=== PATIENT | female | born 1990 | race African-American/Black ===

== ENCOUNTER 2016-05-03 12:26 | Emergency (ER) | payer BC, MEDICAID ==
[~2016-05-03] VITALS: Ht 175.3 cm; Wt 50.0 kg
[2016-05-03] MEDS ORDERED: KETOROLAC 30MG/ML VIAL IV STA (14:59)
[2016-05-03] MEDS ORDERED: LACTULOSE 20G/30ML UDC PO ONE (15:00)
[2016-05-03] MEDS ORDERED: SODIUM CHLORIDE 0.9% 1,000 ML IV ONE (15:00)
[2016-05-03] MEDS ORDERED: FAMOTIDINE 20MG/2ML VIAL IV ONE (15:00)
[2016-05-03 15:29] LABS: BASOPHILS % 1.1 % (0.0-2.0); EOSINOPHILS % 0.8 % (0.0-5.0); HEMATOCRIT. 36.7 % (36.0-48.0); LYMPHOCYTES % 30.7 % (20.0-50.0); MEAN CORPUSCULAR HEMOGLOBIN 28.2 pg (28.0-32.0); MEAN CORPUSCULAR HGB CONC 32.8 g/dL (31.0-37.0); MEAN CORPUSCULAR VOLUME 85.9 fL (81.0-99.0); MEAN PLATELET VOLUME 8.5 fl (7.4-10.4); MONOCYTES % 7.1 % (2.0-8.0); NEUTROPHILS % 60.3 % (40.0-76.0); PLATELET 409 x1000/uL (130-400); RED BLOOD CELL COUNT 4.27 mill/uL (4.2-5.4); RED CELL DISTRIBUTION WIDTH 14.4 % (11.6-14.6); WHITE BLOOD COUNT 7.7 x1000/uL (4.5-11.0)
[2016-05-03 15:35] LABS: INR 1.1; PROTHROMBIN TIME 11.1 sec
[2016-05-03 15:42] LABS: ALANINE AMINOTRANSFERASE 20 IU/L (13-61); ALBUMIN 3.9 g/dL (3.4-5.0); ANION GAP 11; CARBON DIOXIDE 28 mEq/L (21-32); CHLORIDE 104 mEq/L (98-107); INDEX HEMOLYSI 1 (1-3); INDEX ICTERIC 1 (1-4); INDEX LIPEMIC 1 (1-3); LIPASE 95 IU/L (73-393); UREA NITROGEN BLOOD 9 mg/dL (7-21); eGFR > 60 mL/min (>60)
[2016-05-03 15:48] LABS: GLUCOSE URINE NEGATIVE (NEGATIVE); KETONES URINE NEGATIVE (NEGATIVE); LEUKOCYTE ESTERASE URINE 1+ (NEGATIVE); NITRITE URINE NEGATIVE (NEGATIVE); OCCULT BLOOD URINE NEGATIVE (NEGATIVE); PH URINE 7.5 (4.5-8.0); PROTEIN URINE TRACE (NEGATIVE)
[2016-05-03 15:52] LABS: CLARITY URINE HAZY (CLEAR); COLOR URINE DARK YELLOW (YELLOW)
[2016-05-03 16:03] LABS: BACTERIA URINE 1+; SQUAMOUS EPITHELIAL CELL URINE 1+ /lpf (RARE/1+)
[2016-05-03 16:04] LABS: RBC URINE 0-2 /hpf (0-2)
[2016-05-03 16:05] LABS: AMORPHOUS SEDIMENT URINE 1+ /lpf
[2016-05-03 20:46] VITALS: BP 121/78
== END 2016-05-03 20:47 | disposition home or self-care (01) ==
LOC: ER 15:02
DX: N39.0 Urinary tract infection, site not specified (principal); K59.00 Constipation, unspecified; J45.909 Unspecified asthma, uncomplicated
CPT/HCPCS: 36415; 76700; 76830; 76856; 76857; 80053; 81001; 81025; 83690; 85025; 85610; 87210; 96374; 96375; 99285; J1885; J3490; Z7610; J7030

== ENCOUNTER 2016-06-18 15:24 | Emergency (ER) | payer BC, MEDICAID ==
[~2016-06-18] VITALS: Ht 162.6 cm; Wt 54.0 kg
[2016-06-18 16:30] VITALS: BP 116/81
== END 2016-06-18 21:38 | disposition left against medical advice (07) ==
LOC: ER 20:25
DX: N93.8 Other specified abnormal uterine and vaginal bleeding (principal); R10.30 Lower abdominal pain, unspecified; Z98.890 Other specified postprocedural states
CPT/HCPCS: 99281

== ENCOUNTER 2016-08-25 20:20 | Emergency (ER) | payer BC, MEDICAID ==
[~2016-08-25] VITALS: Ht 160 cm; Wt 55.0 kg
[2016-08-25] MEDS ORDERED: KETOROLAC 60MG/2ML VIAL IM ONE (23:00)
[2016-08-26 00:37] LABS: CLARITY URINE CLEAR (CLEAR); COLOR URINE YELLOW (YELLOW); KETONES URINE TRACE (NEGATIVE); LEUKOCYTE ESTERASE URINE 1+ (NEGATIVE); NITRITE URINE NEGATIVE (NEGATIVE); OCCULT BLOOD URINE NEGATIVE (NEGATIVE); PH URINE 5.5 (4.5-8.0); PROTEIN URINE NEGATIVE (NEGATIVE); SPECIFIC GRAVITY URINE 1.031 (1.005-1.030); UROBILINOGEN URINE 0.2 E.U./dL (0.2-1.0)
[2016-08-26 00:38] LABS: GLUCOSE URINE NEGATIVE (NEGATIVE)
[2016-08-26 01:20] VITALS: BP 117/60
== END 2016-08-26 01:29 | disposition home or self-care (01) ==
LOC: ER 22:26
DX: M94.0 Chondrocostal junction syndrome [Tietze] (principal); N39.0 Urinary tract infection, site not specified; Z98.890 Other specified postprocedural states
CPT/HCPCS: 71010; 81001; 81025; 93005; 96372; 99285; J1885; Z7610

== ENCOUNTER 2017-04-18 12:45 | Emergency (ER) | payer BC, MEDICAID ==
[~2017-04-18] VITALS: Ht 160 cm; Wt 57.0 kg
[2017-04-18] MEDS ORDERED: MAGNESIUM/ALUMINUM HYDROXIDE/SIMETHICONE 30ML UDC PO STA (14:39)
[2017-04-18] MEDS: FAMOTIDINE 20MG/2ML VIAL IV STA ×2 (14:39→16:04)
[2017-04-18] MEDS ORDERED: VISCOUS LIDOCAINE 2% 15 ML UDC PO STA (14:39)
[2017-04-18] MEDS ORDERED: DICYCLOMINE 10 MG/5 ML ORAL SYR PO STA (14:39)
[2017-04-18] MEDS ORDERED: FAMOTIDINE 20MG TABLET PO ONE (17:15)
[2017-04-18 18:04] VITALS: BP 111/71
[2017-04-18] MEDS ORDERED: ONDANSETRON 4MG ODT PO ONE (18:30)
== END 2017-04-18 18:10 | disposition home or self-care (01) ==
LOC: ER 15:15
DX: R07.89 Other chest pain (principal); Z98.890 Other specified postprocedural states
CPT/HCPCS: 71045; 81025; 93005; 99284; J3490

== ENCOUNTER 2018-05-02 19:15 | Emergency (ER) | payer BC, MEDICAID ==
[~2018-05-02] VITALS: Ht 160 cm; Wt 55.0 kg
[2018-05-02 23:12] VITALS: BP 115/74
== END 2018-05-03 03:43 | disposition left against medical advice (07) ==
LOC: ER 19:15
DX: Z53.21 Procedure and treatment not carried out due to patient leaving prior to being seen by health care provider (principal)

== ENCOUNTER 2018-05-03 18:15 | Emergency (ER) | payer MEDICAID ==
[~2018-05-03] VITALS: Ht 160 cm; Wt 55.0 kg
[2018-05-04 00:10] LABS: CLARITY URINE CLOUDY (CLEAR); COLOR URINE YELLOW (YELLOW); KETONES URINE NEGATIVE (NEGATIVE); LEUKOCYTE ESTERASE URINE 3+ (NEGATIVE); NITRITE URINE NEGATIVE (NEGATIVE); OCCULT BLOOD URINE NEGATIVE (NEGATIVE); PROTEIN URINE NEGATIVE (NEGATIVE); SPECIFIC GRAVITY URINE 1.024 (1.005-1.030)
[2018-05-04 00:53] LABS: BASOPHILS % 0.8 % (0.0-2.0); EOSINOPHILS % 0.5 % (0.0-5.0); HEMATOCRIT. 37.2 % (36.0-48.0); HEMOGLOBIN. 12.3 g/dL (12.0-16.0); LYMPHOCYTES % 34.3 % (20.0-50.0); MEAN CORPUSCULAR HEMOGLOBIN 29.4 pg (28.0-32.0); MEAN CORPUSCULAR VOLUME 88.7 fL (81.0-99.0); MEAN PLATELET VOLUME 8.4 fl (7.4-10.4); MONOCYTES % 5.2 % (2.0-8.0); NEUTROPHILS % 59.2 % (40.0-76.0); PLATELET 335 x1000/uL (130-400); RED CELL DISTRIBUTION WIDTH 14.1 % (11.6-14.6)
[2018-05-04 01:06] LABS: CHLORIDE 105 mEq/L (98-107)
[2018-05-04] MEDS ORDERED: ACETAMINOPHEN 500MG TABLET PO ONE (01:30)
[2018-05-04] MEDS ORDERED: CEFTRIAXONE 1 G PREMIX 50 ML IV NR (01:30)
[2018-05-04] MEDS ORDERED: FLUCONAZOLE 150MG TABLET PO NR (01:45)
[2018-05-04 02:41] VITALS: BP 104/72
== END 2018-05-04 02:45 | disposition home or self-care (01) ==
LOC: ER 18:15
DX: O23.41 Unspecified infection of urinary tract in pregnancy, first trimester (principal); O98.811 Other maternal infectious and parasitic diseases complicating pregnancy, first trimester; Z3A.01 Less than 8 weeks gestation of pregnancy
CPT/HCPCS: 36415; 76801; 76817; 80053; 81003; 81025; 83690; 84702; 85025; 87086; 96365; 99284; J0696

== ENCOUNTER 2018-05-11 09:48 | Emergency (ER) | payer MEDICAID ==
[~2018-05-11] VITALS: Ht 160 cm; Wt 50.0 kg
[2018-05-11] MEDS ORDERED: SODIUM CHLORIDE 0.9% 1,000 ML IV ONE (10:43)
[2018-05-11] MEDS ORDERED: ACETAMINOPHEN 325MG TABLET PO ONE (10:45)
[2018-05-11 10:47] LABS: CLARITY URINE CLOUDY (CLEAR); COLOR URINE DARK YELLOW (YELLOW); KETONES URINE 3+ (NEGATIVE); LEUKOCYTE ESTERASE URINE 2+ (NEGATIVE); NITRITE URINE NEGATIVE (NEGATIVE); OCCULT BLOOD URINE NEGATIVE (NEGATIVE); PROTEIN URINE 1+ (NEGATIVE); SPECIFIC GRAVITY URINE 1.035 (1.005-1.030)
[2018-05-11 11:14] LABS: *AMPHETAMINES SCREEN URINE NEGATIVE (NEGATIVE); *BARBITURATES SCREEN URINE NEGATIVE (NEGATIVE); *BENZODIAZEPINES SCREEN URINE NEGATIVE (NEGATIVE); *COCAINE SCREEN URINE NEGATIVE (NEGATIVE); METHADONE URINE SCREEN NEGATIVE (NEGATIVE); OPIATES URINE SCREEN NEGATIVE (NEGATIVE)
[2018-05-11 11:15] LABS: CANNABINOID URINE SCREEN NEGATIVE (NEGATIVE); PHENCYCLIDINE URINE SCREEN NEGATIVE (NEGATIVE)
[2018-05-11] MEDS ORDERED: CEFAZOLIN 1000MG PREMIX 50 ML IV ONE (11:30)
[2018-05-11 13:39] VITALS: BP 96/56
== END 2018-05-11 14:26 | disposition home or self-care (01) ==
LOC: ER 09:48
DX: O23.41 Unspecified infection of urinary tract in pregnancy, first trimester (principal); R10.2 Pelvic and perineal pain; Z3A.01 Less than 8 weeks gestation of pregnancy; Z98.890 Other specified postprocedural states
CPT/HCPCS: 80305; 81003; 87086; 87210; 96365; 99283; J0690; J7030; Z7610

== ENCOUNTER 2019-03-13 20:01 | Emergency (ER) | payer MEDICAID ==
[~2019-03-13] VITALS: Ht 162.6 cm; Wt 64.0 kg
[2019-03-13 20:08] VITALS: BP 131/71
[2019-03-13] MEDS ORDERED: KETOROLAC 30MG/ML VIAL IM ONE (20:45)
[2019-03-13] MEDS ORDERED: HYDROCODONE/ACETAMINOPHEN 5/325MG TABLET PO ONE (20:45)
== END 2019-03-13 23:53 | disposition home or self-care (01) ==
LOC: ER 20:01
DX: M54.2 Cervicalgia (principal); R07.81 Pleurodynia; M54.5 Low back pain; V48.1XXA Car passenger injured in noncollision transport accident in nontraffic accident, initial encounter; Z98.890 Other specified postprocedural states; Y93.89 Activity, other specified; Y92.89 Other specified places as the place of occurrence of the external cause; Y99.8 Other external cause status
CPT/HCPCS: 71101; 72100; 72125; 73060; 73090; 81025; 96372; 99284; J1885

== ENCOUNTER 2020-12-13 14:32 | Emergency (ER) | payer MEDICAID ==
[~2020-12-13] VITALS: Ht 157.5 cm; Wt 53.0 kg
[2020-12-13] MEDS ORDERED: SODIUM CHLORIDE 0.9% 1,000 ML IV ONE (18:15)
[2020-12-13 18:33] LABS: HEMATOCRIT 37.5 % (36.0-48.0); HEMOGLOBIN 12.6 g/dL (12.0-16.0); MEAN CORPUSCULAR HEMOGLOBIN 29.8 pg (28.0-32.0); MEAN CORPUSCULAR VOLUME 88.7 fL (81.0-99.0); PLATELET 383 x1000/uL (130-400); RED BLOOD CELL COUNT 4.23 mill/uL (4.2-5.4); RED CELL DISTRIBUTION WIDTH 14.1 % (11.6-14.6)
[2020-12-13 18:39] LABS: CHLORIDE 107 mEq/L (98-107)
[2020-12-13 18:51] LABS: HCG SCREEN NEGATIVE
[2020-12-13 18:52] LABS: CLARITY URINE CLOUDY (CLEAR); COLOR URINE DARK YELLOW (YELLOW); KETONES URINE 1+ (NEGATIVE); LEUKOCYTE ESTERASE URINE 2+ (NEGATIVE); NITRITE URINE NEGATIVE (NEGATIVE); OCCULT BLOOD URINE NEGATIVE (NEGATIVE); PROTEIN URINE 2+ (NEGATIVE)
[2020-12-13] MEDS ORDERED: POTASSIUM CHLORIDE 20MEQ TABLET SR PO NR (19:00)
[2020-12-13] MEDS ORDERED: MAGN400C PO (19:04)
[2020-12-13 19:08] LABS: UCG SCREEN NEGATIVE
[2020-12-13] MEDS ORDERED: MAGNESIUM OXIDE 400MG TABLET PO NR (19:08)
[2020-12-13] MEDS ORDERED: CEPH500C2 MT (19:35)
[2020-12-13 20:59] VITALS: BP 128/76
== END 2020-12-13 20:59 | disposition home or self-care (01) ==
LOC: ER 14:32
DX: N39.0 Urinary tract infection, site not specified (principal); E87.6 Hypokalemia; E83.42 Hypomagnesemia
CPT/HCPCS: 36415; 80048; 81003; 81025; 82962; 83735; 84703; 85027; 87086; 96360; 99283; J7030

== ENCOUNTER 2021-01-05 13:17 | Emergency (ER) | payer MEDICAID ==
[~2021-01-05] VITALS: Ht 160 cm; Wt 50.0 kg
[~2021-01-05 13:17] MED LIST: CEPH500C2 MT; MAGN400C PO
[2021-01-05 13:36] VITALS: BP 113/61
[2021-01-05 14:48] LABS: CLARITY URINE CLEAR (CLEAR); COLOR URINE YELLOW (YELLOW); KETONES URINE NEGATIVE (NEGATIVE); LEUKOCYTE ESTERASE URINE 1+ (NEGATIVE); NITRITE URINE NEGATIVE (NEGATIVE); OCCULT BLOOD URINE TRACE (NEGATIVE); PH URINE 7.5 (4.5-8.0); PROTEIN URINE NEGATIVE (NEGATIVE); SPECIFIC GRAVITY URINE 1.023 (1.005-1.030)
[2021-01-05 15:04] LABS: BASOPHILS % 0.4 % (0.0-2.0); EOSINOPHILS % 0.8 % (0.0-5.0); HEMATOCRIT. 37.1 % (36.0-48.0); HEMOGLOBIN. 12.1 g/dL (12.0-16.0); LYMPHOCYTES % 55.7 % (20.0-50.0); MEAN CORPUSCULAR HEMOGLOBIN 28.2 pg (28.0-32.0); MEAN CORPUSCULAR VOLUME 86.2 fL (81.0-99.0); MEAN PLATELET VOLUME 7.9 fl (7.4-10.4); MONOCYTES % 9.1 % (2.0-8.0); PLATELET 374 x1000/uL (130-400); RED BLOOD CELL COUNT 4.31 mill/uL (4.2-5.4); RED CELL DISTRIBUTION WIDTH 14.7 % (11.6-14.6)
[2021-01-05 15:05] LABS: CHLORIDE 111 mEq/L (98-107)
[2021-01-05] MEDS ORDERED: METR-167 MT (18:00)
[2021-01-05] MEDS ORDERED: NITR100C MT (18:00)
== END 2021-01-05 17:00 | disposition left against medical advice (07) ==
LOC: ER 13:17
DX: Z53.21 Procedure and treatment not carried out due to patient leaving prior to being seen by health care provider (principal); N39.0 Urinary tract infection, site not specified; A59.9 Trichomoniasis, unspecified
CPT/HCPCS: 36415; 80053; 81003; 81025; 85025